=== PATIENT | male | born 2000 | race Caucasian/White ===

== ENCOUNTER → 2023-01-29 | Outpatient (CLI) | payer OTHER, SELFPAY ==
[2023-01-29 12:14] LABS: Absolute Lymphocyte Count 2.54 X10^3/uL (0.83-4.51); Absolute Neutrophil Count 3.8 X10^3/uL (2.0-7.7); Basophil# 0.05 X10^3/uL; Basophil% 0.7 % (0-1); Eosinophil# 0.22 X10^3/uL; Eosinophils% 3.1 % (0-5); Hematocrit 44.3 % (40-54); Hemoglobin 15.4 g/dL (13.0-16.5); Lymphocyte # 2.54 X10^3/ul (0.83-4.51); Lymphocyte % 35.8 % (19-41); Mean Corp Hgb Conc 34.8 g/dL (32-36); Mean Corpuscular Hgb 27.9 pg (27.0-32.0); Mean Corpuscular Volume 80.3 fL (80-94); Mean Platelet Vol. 9.3 fl (6.2-12.0); Monocyte# 0.51 X10^3/uL; Monocyte% 7.2 % (0-10); NRBC Flagged by Analyzer 0 % (0-5); Neutrophil # 3.76 X10^3/uL (2.7-7.7); Neutrophil % 52.9 % (47-70); Platelet Count 287 K/mm3 (150-450); RBC Distribution Width CV 11.5 % (11.6-14.6); RBC Distribution Width SD 33.5 fl (35.1-43.9); Red Blood Count 5.52 M/mm3 (4.6-6.2); White Blood Count 7.1 K/mm3 (4.4-11.0)
[2023-01-29 12:31] LABS: ALB/GLOB Ratio 1.1 RATIO (0.9-2.4); AST(SGOT) 28 U/L (15-37); Alanine Aminotransfer ALT/SGPT 32 U/L (16-61); Albumin, Serum 4.2 g/dL (3.2-5.0); Alkaline Phosphatase 145 U/L (45-117); Anion Gap 4 (5-15); BUN 9 mg/dL (7-18); BUN/Creat Ratio 9.1 RATIO (10-20); Calcium,Total 9.3 mg/dL (8.5-10.1); Chloride 106 mmol/L (98-107); Creatinine, Serum 0.99 mg/dL (0.70-1.30); EST Glomerular Filtration Rate 99 mL/min (>60); Est Glom Filt Rate - Afr Amer 120 mL/min (>60); Globulin 3.9 g/dL (2.2-4.2); Glucose 95 mg/dL (74-106); Potassium 3.7 mmol/L (3.5-5.1); Protein, Total 8.1 g/dL (6.4-8.2); Sodium Level 139 mmol/L (136-145)
[2023-01-29 16:05] LABS: BNP,B-Type NATRIURETIC PEPTIDE < 2.0 pg/mL (0-100)
== END | disposition home or self-care (01) ==
LOC: BIMLAB 11:29
PROVIDERS: PCP Internal Medicine; Visit Provider Internal Medicine
DX: R01.1 Cardiac murmur, unspecified (principal); R06.02 Shortness of breath
CPT/HCPCS: 36415; 80053; 83880; 85025

== ENCOUNTER → 2023-02-18 | Outpatient (CLI) | payer SELFPAY, OTHER ==
--- NOTE | 2023-02-18 10:01 | ECHOD_ITS ---
Reason For Study: Murmur Procedure This was a 2D Doppler, Color Flow transthoracic echocardiogram. Myocardial strain analysis was performed in this exam to aid in the assessment of cardiac function. Exam performed in department. Left Ventricle Normal LV size. The estimated ejection fraction is 65 %. No evidence for diastolic dysfunction. No regional wall motion abnormalities noted. Right Ventricle Normal RV size. Normal systolic function. Atria Normal left atrium. Normal right atrium. No doppler evidence for ASD. Mitral Valve There is no mitral valve stenosis. No mitral valve insufficiency. Tricuspid Valve There is no tricuspid stenosis. Trivial tricuspid valve insufficiency. Pulmonary artery systolic pressure is 30 mmHg. Aortic Valve Trisinus/trileaflet aortic valve. There is no aortic stenosis. No aortic valve insufficiency. Pulmonic Valve There is no pulmonic valvular stenosis. Trivial pulmonic valve insufficiency. Great Vessels Normal aortic root. Pericardium/Pleural No pericardial effusion. MMode/2D Measurements & Calculations LVIDd: 4.9 cm IVSd: 1.2 cm Ao root diam: 2.3 cm LVIDs: 3.2 cm LVPWd: 1.0 cm RVDd: 3.8 cm FS: 35.0 % LAV(MOD-bp): 51.7 ml LVAd ap4: 29.0 cm2 SV(MOD-sp4): 61.7 ml LAV(MOD-bp) Indexed: 27.9 ml/m2 LVLd ap4: 8.2 cm LAV(MOD-sp2): 54.9 ml EDV(MOD-sp4): 83.2 ml LAV(MOD-sp4): 44.2 ml EDV(sp4-el): 86.4 ml LVAs ap4: 12.5 cm2 LVLs ap4: 6.4 cm ESV(MOD-sp4): 21.5 ml ESV(sp4-el): 20.6 ml EF(MOD-sp4): 74.1 % EF(sp4-el): 76.1 % SV(sp4-el): 65.7 ml LA A4 area: 17.0 cm2 LA dimension(2D): 3.6 cm RA A4 area: 14.0 cm2 TAPSE: 3.5 cm Time Measurements MV dec time: 0.17 sec Doppler Measurements & Calculations MV E max jose armando: 97.2 cm/sec Lat Peak E' Jose Armando: 20.4 cm/sec Med Peak E' Jose Armando: 14.6 cm/sec MV A max jose armando: 40.5 cm/sec E/E' lat: 4.8 E/E' med: 6.6 MV E/A: 2.4 Ao V2 max: 163.5 cm/sec LV V1 max: 142.0 cm/sec MV dec slope: 559.7 cm/sec2 Ao max P.7 mmHg LV V1 max P.1 mmHg Ao V2 mean: 118.5 cm/sec LV V1 mean P.6 mmHg Ao mean P.3 mmHg LV V1 mean: 100.0 cm/sec Ao V2 VTI: 28.4 cm LV V1 VTI: 28.1 cm AV (velocity ratio): 0.99 PA V2 max: 134.4 cm/sec PI end-d jose armando: 91.7 cm/sec TR max jose armando: 245.5 cm/sec TR max P.1 mmHg ECHO/Echo Complete Interpretation Summary The estimated ejection fraction is 65 %. No evidence for diastolic dysfunction. Ordering Physician: Eugenia Gonzalez Referring Physician: Eugenia Gonzalez Performed By: [place] Orta, QUINTIN, RVT
== END | disposition home or self-care (01) ==
LOC: CVS 10:01
PROVIDERS: PCP Internal Medicine; Referring Provider Internal Medicine; Visit Provider Internal Medicine
DX: R01.1 Cardiac murmur, unspecified (principal); Z82.49 Family history of ischemic heart disease and other diseases of the circulatory system; R06.02 Shortness of breath
CPT/HCPCS: 93306